=== PATIENT | female | born 2000 | race Caucasian/White ===

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

== ENCOUNTER 2018-08-05 08:11 | Emergency (ER) | payer BC ==
[2018-08-05 08:28] VITALS: BP 121/74
--- NOTE | 2018-08-05 08:37 | EDM.PDOC ---
ED HPI GENERAL MEDICAL PROBLEM - General Chief Complaint: Abdominal Pain Stated Complaint: ABDOMINAL PAIN Time Seen by Provider: 08/05/18 08:37 - History of Present Illness INITIAL COMMENTS - FREE TEXT/NARRATIVE: 18-year-old female presents to the emergency room with abdominal pain. patient has a history of gallbladder problems and is scheduled to see a surgeon on Wednesday. The last several days she's had considerable nausea vomiting and right upper quadrant discomfort. Her biggest complaint at this point is now when she stands up she gets dizzy. She did not have any chest pain chest pressure or swallowing difficulties at this point no burning or frequency with urination she doesn't think she is . Patient had a HIDA scan done a week or so ago I did look this up and it was reported as normal. Apparently patient had a gallbladder ultrasound done prior to this that showed gallbladder wall thickening. I do not have access to this Right Middle Abdominal Pain Score (Numeric/FACES): 7 - Related Data Allergies Allergy/AdvReac Type Severity Reaction Status Date / Time haloperidol [From Haldol] Allergy Facial Verified 08/05/18 08:19 Swelling Sulfa (Sulfonamide Allergy Rash Verified 08/05/18 08:19 Antibiotics) Home Meds: Home Meds Inhaler, Assist Devices [Space Chamber Plus] 1 inh [facility] ASDIRECTED PRN #1 spacer 08/20/17 [Rx] ARIPiprazole [Abilify] 10 mg PO DAILY 08/05/18 [History] Albuterol [Ventolin HFA] 1 puff INH ASDIRECTED 08/05/18 [History] Budesonide/Formoterol [Symbicort 160-4.5 MCG] 1 puff INH DAILY 08/05/18 [History ] Ondansetron [Zofran ODT] 4 mg PO Q6H PRN #10 tab.dis 08/05/18 [Rx] Venlafaxine [Effexor] 37.5 mg PO DAILY 08/05/18 [History] Past Medical History HEENT History: Reports: Allergic Rhinitis, Hard of Hearing Respiratory History: Reports: Asthma 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: , 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 Psychiatric History: Reports: Anxiety, Depression, Suicide Attempt - Past Surgical History HEENT Surgical History: Reports: Adenoidectomy, Myringotomy w Tube(s) Social & Family History - Family History Family Medical History: Noncontributory - Tobacco Use Smoking Status *Q: Current Every Day Smoker Years of Tobacco use: 6 Packs/Tins Daily: 0.2 - Caffeine Use Caffeine Use: Reports: None - Recreational Drug Use Recreational Drug Use: No - Living Situation & Occupation Living situation: Reports: Single, Alone 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 Denies: Constipation : Reports: No Symptoms Musculoskeletal: Reports: No Symptoms Skin: Reports: No Symptoms Neurological: Reports: No Symptoms ED EXAM, GI/ABD - Physical Exam Exam: See Below Exam Limited By: No Limitations General Appearance: Alert, No Apparent Distress Head: Atraumatic, Normocephalic Neck: Normal Inspection, Supple, Non-Tender, Full Range of Motion. No: Lymphadenopathy (L), Lymphadenopathy (R) Respiratory/Chest: No Respiratory Distress, Lungs Clear, Normal Breath Sounds Cardiovascular: Regular Rate, Rhythm, No Edema, No Murmur GI/Abdominal Exam: Normal Bowel Sounds, Soft, Other (She has some mild to moderate right upper quadrant discomfort with palpation vague minimal discomfort elsewhere no rigidity rebound or guarding) Back Exam: Normal Inspection, CVA Tenderness (L), CVA Tenderness (R) Extremities: Normal Inspection, Non-Tender Course - Vital Signs Last Recorded V/S: Last Vital Signs Temp 36.4 C 08/05/18 08:23 Pulse 75 08/05/18 08:23 Resp 13 08/05/18 08:23 BP 121/74 08/05/18 08:23 Pulse Ox 98 08/05/18 08:23 Orthostatic Blood Pressure [ 110/86 Standing] Orthostatic Blood Pressure [ 116/80 Sitting] Orthostatic Blood Pressure [ 121/74 Supine] - Orders/Labs/Meds Labs: Laboratory Tests 08/05/18 08/05/18 08/05/18 Range/Units 09:10 09:10 09:10 WBC 7.18 (3.98-10.04) K/mm3 RBC 5.08 (3.98-5.22) M/mm3 Hgb 14.2 (11.2-15.7) gm/L Hct 42.8 (34.1-44.9) % MCV 84.3 (79.4-94.8) fl MCH 28.0 (25.6-32.2) pg MCHC 33.2 (32.2-35.5) g/dl RDW Std Deviation 39.9 (36.4-46.3) fL Plt Count 202 (182-369) K/mm3 MPV 12.2 (9.4-12.3) fl Neutrophils % (Manual) 58 (40-60) % Band Neutrophils % 0 (0-10) % Lymphocytes % (Manual) 31 (20-40) % Atypical Lymphs % 0 % Monocytes % (Manual) 6 (2-10) % Eosinophils % (Manual) 5 (0.7-5.8) % Basophils % (Manual) 0 L (0.1-1.2) Platelet Estimate Adequate RBC Morph Comment Normal Sodium 142 (136-145) mEq/L Potassium 3.9 (3.5-5.1) mEq/L Chloride 107 (98-107) mEq/L Carbon Dioxide 23 (21-32) mEq/L Anion Gap 15.9 H (5-15) BUN 16 (7-18) mg/dL Creatinine 0.7 (0.55-1.02) mg/dL Est Cr Clr Drug Dosing 110.70 mL/min Estimated GFR (MDRD) > 60 (>60) mL/min BUN/Creatinine Ratio 22.9 H (14-18) Glucose 101 (74-106) mg/dL Calcium 9.1 (8.5-10.1) mg/dL Total Bilirubin 0.3 (0.2-1.0) mg/dL Direct Bilirubin 0.10 (0.0-0.2) mg/dl Indirect Bilirubin 0.20 AST 14 L (15-37) U/L ALT 27 (14-59) U/L Alkaline Phosphatase 81 (46-116) U/L Total Protein 7.3 (6.4-8.2) g/dl Albumin 4.0 (3.4-5.0) g/dl Globulin 3.3 gm/dL Albumin/Globulin Ratio 1.2 (1-2) HCG, Qual Negative (NEGATIVE) Urine Color (Yellow) Urine Appearance (Clear) Urine pH (5.0-8.0) Ur Specific Ragland (1.005-1.030) Urine Protein (Negative) Urine Glucose (UA) (Negative) Urine Ketones (Negative) Urine Occult Blood (Negative) Urine Nitrite (Negative) Urine Bilirubin (Negative) Urine Urobilinogen (0.2-1.0) Ur Leukocyte Esterase (Negative) Urine RBC (0-5) /hpf Urine WBC (0-5) /hpf Ur Epithelial Cells (0-5) /hpf Urine Bacteria (FEW) /hpf Urine Mucus (FEW) /hpf 08/05/18 Range/Units 09:37 WBC (3.98-10.04) K/mm3 RBC (3.98-5.22) M/mm3 Hgb (11.2-15.7) gm/L Hct (34.1-44.9) % MCV (79.4-94.8) fl MCH (25.6-32.2) pg MCHC (32.2-35.5) g/dl RDW Std Deviation (36.4-46.3) fL Plt Count (182-369) K/mm3 MPV (9.4-12.3) fl Neutrophils % (Manual) (40-60) % Band Neutrophils % (0-10) % Lymphocytes % (Manual) (20-40) % Atypical Lymphs % % Monocytes % (Manual) (2-10) % Eosinophils % (Manual) (0.7-5.8) % Basophils % (Manual) (0.1-1.2) Platelet Estimate RBC Morph Comment Sodium (136-145) mEq/L Potassium (3.5-5.1) mEq/L Chloride (98-107) mEq/L Carbon Dioxide (21-32) mEq/L Anion Gap (5-15) BUN (7-18) mg/dL Creatinine (0.55-1.02) mg/dL Est Cr Clr Drug Dosing mL/min Estimated GFR (MDRD) (>60) mL/min BUN/Creatinine Ratio (14-18) Glucose (74-106) mg/dL Calcium (8.5-10.1) mg/dL Total Bilirubin (0.2-1.0) mg/dL Direct Bilirubin (0.0-0.2) mg/dl Indirect Bilirubin AST (15-37) U/L ALT (14-59) U/L Alkaline Phosphatase (46-116) U/L Total Protein (6.4-8.2) g/dl Albumin (3.4-5.0) g/dl Globulin gm/dL Albumin/Globulin Ratio (1-2) HCG, Qual (NEGATIVE) Urine Color Yellow (Yellow) Urine Appearance Clear (Clear) Urine pH 6.0 (5.0-8.0) Ur Specific Ragland > or = 1.030 (1.005-1.030) Urine Protein 1+ H (Negative) Urine Glucose (UA) Negative (Negative) Urine Ketones Negative (Negative) Urine Occult Blood Negative (Negative) Urine Nitrite Negative (Negative) Urine Bilirubin Negative (Negative) Urine Urobilinogen 0.2 (0.2-1.0) Ur Leukocyte Esterase Negative (Negative) Urine RBC Not seen (0-5) /hpf Urine WBC 0-5 (0-5) /hpf Ur Epithelial Cells 0-5 (0-5) /hpf Urine Bacteria Few (FEW) /hpf Urine Mucus Many H (FEW) /hpf Meds: Medications Discontinued Medications Generic Name Dose Route Start Last Admin Trade Name Freq PRN Reason Stop Dose Admin Lactated Ringer's 1,000 mls @ 999 mls/hr 08/05/18 08:47 08/05/18 09:16 Ringers, Lactated IV 08/05/18 09:47 999 mls/hr .BOLUS ONE Administration - Re-Assessments/Exams Free Text/Narrative Re-Assessment/Exam: 08/05/18 11:22 Patient is feeling better after some IV fluids and some Zofran I'm not certain what's causing her discomfort. She needs to await her surgical evaluation. We' ll discharge her with some Zofran. Discussed pain management she doesn't think she needs anything. Departure - Departure Time of Disposition: 11:23 Disposition: Home, Self-Care 01 Clinical Impression: Right upper quadrant abdominal pain - Discharge Information Prescriptions: Ondansetron [Zofran ODT] 4 mg PO Q6H PRN #10 tab.dis PRN Reason: Nausea/Vomiting Referrals: Phuong Garcia NP [Primary Care Provider] - Forms: ED Department Discharge, ED Return to Work/School Form Additional Instructions: Return to the emergency room with any questions problems worsening symptoms. Clear liquid diet for the next 24 hours and slowly advance as tolerated. Use the Zofran as needed to control nausea and vomiting. Follow-up with your surgeon as scheduled.
[2018-08-05] MEDS ORDERED: Lactated Ringers 1,000 ML IV ONE (08:47)
== END 2018-08-05 11:42 | disposition home or self-care (01) ==
LOC: JD.ED 08:11
DX: R10.11 Right upper quadrant pain (principal); R11.2 Nausea with vomiting, unspecified; F41.9 Anxiety disorder, unspecified; F32.9 Major depressive disorder, single episode, unspecified; F17.210 Nicotine dependence, cigarettes, uncomplicated; Z79.899 Other long term (current) drug therapy; Z96.22 Myringotomy tube(s) status; Z88.2 Allergy status to sulfonamides; Z88.8 Allergy status to other drugs, medicaments and biological substances
CPT/HCPCS: 36415; 80048; 80076; 81001; 84703; 85007; 85027; 96360; 99284; J7120; 99283

== ENCOUNTER 2018-11-20 18:40 | Emergency (ER) | payer BC ==
[2018-11-20 18:52] VITALS: BP 126/87; PULSE 86
--- NOTE | 2018-11-20 19:25 | EDM.PDOC ---
ED HPI GENERAL MEDICAL PROBLEM - General Chief Complaint: Respiratory Problem Stated Complaint: SOB THROAT IS SORE FOR 3 DAYS Time Seen by Provider: 11/20/18 19:13 Source of Information: Reports: Patient History Limitations: Reports: No Limitations - History of Present Illness INITIAL COMMENTS - FREE TEXT/NARRATIVE: 18-year-old female presents for evaluation and treatment of a sore throat last 3 days. She reports symptoms of a sore throat, vomiting, right ear pain and chills. Denies any fever, cough, odynophagia or nausea. Reports she has been around a friend who is been ill but is unsure but she has been ill with. Has been treating symptoms with [id number] Motrin. She states that she had shortness of breath earlier but this is now resolved. - Related Data Allergies Allergy/AdvReac Type Severity Reaction Status Date / Time haloperidol [From Haldol] Allergy Facial Verified 11/20/18 18:47 Swelling Sulfa (Sulfonamide Allergy Rash Verified 11/20/18 18:47 Antibiotics) Home Meds: Home Meds Inhaler, Assist Devices [Space Chamber Plus] 1 inh [facility] ASDIRECTED PRN #1 spacer 08/20/17 [Rx] Albuterol [Ventolin HFA] 1 puff INH ASDIRECTED 08/05/18 [History] Budesonide/Formoterol [Symbicort 160-4.5 MCG] 1 puff INH DAILY 08/05/18 [History ] Venlafaxine [Effexor] 37.5 mg PO DAILY 08/05/18 [History] Past Medical History HEENT History: Reports: Allergic Rhinitis, Hard of Hearing Cardiovascular History: Reports: None Respiratory History: Reports: Asthma Gastrointestinal History: Reports: Cholelithiasis Genitourinary History: Reports: None 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: , Spontaneous Musculoskeletal History: Reports: Back Pain, Chronic Neurological History: Reports: None Psychiatric History: Reports: Anxiety, Depression, Suicide Attempt Endocrine/Metabolic History: Reports: None Hematologic History: Reports: None Immunologic History: Reports: None Oncologic (Cancer) History: Reports: None Dermatologic History: Reports: None - Infectious Disease History Infectious Disease History: Reports: None - Past Surgical History Head Surgeries/Procedures: Reports: None HEENT Surgical History: Reports: Adenoidectomy, Myringotomy w Tube(s) GI Surgical History: Reports: Cholecystectomy Social & Family History - Family History Family Medical History: Noncontributory - Tobacco Use Smoking Status *Q: Current Every Day Smoker Years of Tobacco use: 6 Packs/Tins Daily: 1 Used Tobacco, but Quit: Yes Month/Year Tobacco Last Used: 10/31 - Caffeine Use Caffeine Use: Reports: Coffee, Soda - Recreational Drug Use Recreational Drug Use: Yes Drug Use in Last 12 Months: No Recreational Drug Type: Reports: Marijuana/Hashish - Living Situation & Occupation Living situation: Reports: Single, Alone 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 Denies: Fever HEENT: Reports: Ear Pain (right), Hearing Loss, Throat Pain, Other (denies odynophagia) Respiratory: Denies: Shortness of Breath (earleir, now resolved) GI/Abdominal: Reports: Vomiting. Denies: Nausea ED EXAM, GENERAL - Physical Exam Exam: See Below Exam Limited By: No Limitations General Appearance: Alert, WD/WN, No Apparent Distress, Obese Eye Exam: Bilateral Eye: Normal Inspection Ears: Normal External Exam, Normal Canal, Hearing Grossly Normal, Normal TMs Nose: Normal Inspection Throat/Mouth: Normal Inspection, Normal Lips, Normal Voice, No Airway Compromise , Other (oropharynx is erythematous, no exudates present) Neck: Normal Inspection, Supple Respiratory/Chest: No Respiratory Distress, Lungs Clear, Normal Breath Sounds Cardiovascular: Normal Peripheral Pulses, Regular Rate, Rhythm, No Murmur Neurological: Alert, Oriented, Normal Cognition Psychiatric: Normal Affect, Normal Mood Skin Exam: Warm, Dry, Normal Color Course - Vital Signs Last Recorded V/S: Last Vital Signs Temp 98.2 F 11/20/18 18:50 Pulse 86 11/20/18 18:50 Resp 16 11/20/18 18:50 BP 126/87 11/20/18 18:50 Pulse Ox 100 11/20/18 18:50 - Orders/Labs/Meds Orders: Active Orders 24 hr Category Date Time Status STREP SCRN A RAPID W CULT CONF [RM] Stat Lab 11/20/18 19:13 Ordered - Re-Assessments/Exams Free Text/Narrative Re-Assessment/Exam: 11/20/18 19:51 Rapid strep returned negative. Recommend symptomatic care for viral pharyngitis. Discharge instructions as documented. Departure - Departure Time of Disposition: 19:53 Disposition: Home, Self-Care 01 Condition: Good Clinical Impression: Viral pharyngitis - Discharge Information *PRESCRIPTION DRUG MONITORING PROGRAM REVIEWED*: No *COPY OF PRESCRIPTION DRUG MONITORING REPORT IN PATIENT LUCIANA: No Referrals: Phuong Gacria NP [Primary Care Provider] - Forms: ED Department Discharge Additional Instructions: make sure you are drinking plenty of fluids. Tylenol or Motrin as needed for fevers and discomfort. Recommend soft foods such as Jell-O, mashed potatoes, etc. Follow-up with primary care provider if not much better in 2 weeks. Please return to the ER should your symptoms change or worsen. - My Orders Last 24 Hours: My Active Orders 11/20/18 19:13 STREP SCRN A RAPID W CULT CONF [RM] Stat - Assessment/Plan Last 24 Hours: My Active Orders 11/20/18 19:13 STREP SCRN A RAPID W CULT CONF [RM] Stat
== END 2018-11-20 20:11 | disposition home or self-care (01) ==
LOC: JD.ED 18:40
DX: J02.8 Acute pharyngitis due to other specified organisms (principal); F32.9 Major depressive disorder, single episode, unspecified; F41.9 Anxiety disorder, unspecified; F17.210 Nicotine dependence, cigarettes, uncomplicated; Z98.890 Other specified postprocedural states; Z88.2 Allergy status to sulfonamides; Z88.8 Allergy status to other drugs, medicaments and biological substances; Z79.899 Other long term (current) drug therapy
CPT/HCPCS: 87081; 87430; 99282; 99283

== ENCOUNTER 2018-11-22 11:58 | Emergency (ER) | payer BC ==
[2018-11-22 12:07] VITALS: BP 119/78; PULSE 88
[2018-11-22] MEDS ORDERED: Albuterol 0.083% 2.5 MG/3 ML Neb Soln NEB ONE ×2 (12:26→13:59)
--- NOTE | 2018-11-22 12:26 | EDM.PDOC ---
ED HPI GENERAL MEDICAL PROBLEM - General Chief Complaint: Respiratory Problem Stated Complaint: CONGESTION/HARD TO BREATHE Time Seen by Provider: 11/22/18 12:21 Source of Information: Reports: Patient History Limitations: Reports: No Limitations - History of Present Illness INITIAL COMMENTS - FREE TEXT/NARRATIVE: 18-year-old female presents for evaluation and treatment of shortness of breath. Patient reports she's been ill for the last week. She is seen by myself in the ER just 2 days ago. Rapid strep returned negative and culture was also negative. She was instructed regarding treatment for viral pharyngitis. She states she's been taking Sudafed and last night a family member gave her some medicine for congestion, she is unsure what this is. She states since then she has now been short of breath. She has a history of asthma and uses a rescue inhaler. She has been having to use the albuterol more than normal. Currently complains of wheezing, shortness of breath and chest pain. She reports one episode of vomiting yesterday and has been feeling nauseous and she reports a productive cough. No fevers, chills or any abdominal pain. She has expected some back pain that she attributes to the cough. Reports a productive cough and states she is coughing up some "white stuff ". Denies any throat pain or odynophagia now. Chest Pain Score (Numeric/FACES): 8 - Related Data Allergies Allergy/AdvReac Type Severity Reaction Status Date / Time haloperidol [From Haldol] Allergy Facial Verified 11/22/18 12:07 Swelling Sulfa (Sulfonamide Allergy Rash Verified 11/22/18 12:07 Antibiotics) Home Meds: Home Meds Inhaler, Assist Devices [Space Chamber Plus] 1 inh MC ASDIRECTED PRN #1 spacer 08/20/17 [Rx] Albuterol [Ventolin HFA] 1 puff INH ASDIRECTED 08/05/18 [History] Budesonide/Formoterol [Symbicort 160-4.5 MCG] 1 puff INH DAILY 08/05/18 [History ] Venlafaxine [Effexor] 37.5 mg PO DAILY 08/05/18 [History] Albuterol [Proventil Neb Soln] 2.5 mg .XX Q4HR PRN #20 neb 11/22/18 [Rx] Nebulizer [Truneb Nebulizer] 1 each MC ASDIRECTED #1 each 11/22/18 [Rx] predniSONE [Prednisone] 20 mg PO BID #10 tablet 11/22/18 [Rx] Past Medical History HEENT History: Reports: Allergic Rhinitis, Hard of Hearing Cardiovascular History: Reports: None Respiratory History: Reports: Asthma Gastrointestinal History: Reports: Cholelithiasis Genitourinary History: Reports: None 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: , 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 Musculoskeletal History: Reports: Back Pain, Chronic Neurological History: Reports: None Psychiatric History: Reports: Anxiety, Depression, Suicide Attempt Endocrine/Metabolic History: Reports: None Hematologic History: Reports: None Immunologic History: Reports: None Oncologic (Cancer) History: Reports: None Dermatologic History: Reports: None - Infectious Disease History Infectious Disease History: Reports: None - Past Surgical History Head Surgeries/Procedures: Reports: None HEENT Surgical History: Reports: Adenoidectomy, Myringotomy w Tube(s) GI Surgical History: Reports: Cholecystectomy Social & Family History - Family History Family Medical History: Noncontributory - Tobacco Use Smoking Status *Q: Former Smoker Used Tobacco, but Quit: Yes Month/Year Tobacco Last Used: 10/31 - Caffeine Use Caffeine Use: Reports: Coffee, Soda - Recreational Drug Use Recreational Drug Use: No - Living Situation & Occupation Living situation: Reports: Single, Alone 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 Denies: Abdominal Pain Musculoskeletal: Denies: Back Pain ED EXAM, GENERAL - Physical Exam Exam: See Below Exam Limited By: No Limitations General Appearance: Alert, WD/WN, Anxious, Mild Distress Ears: Normal External Exam, Normal Canal, Hearing Grossly Normal, Normal TMs Nose: Normal Inspection Throat/Mouth: Normal Inspection, Normal Lips, Normal Oropharynx (Erythematous but no exudates), Normal Voice, No Airway Compromise Respiratory/Chest: No Respiratory Distress, Wheezing (Diffuse bilateral) Cardiovascular: Normal Peripheral Pulses, Regular Rate, Rhythm, No Murmur GI/Abdominal: Soft, Non-Tender Neurological: Alert, Oriented, Normal Cognition Psychiatric: Normal Affect, Normal Mood Skin Exam: Warm, Dry, Normal Color Course - Vital Signs Last Recorded V/S: Last Vital Signs Temp 98.4 F 11/22/18 12:04 Pulse 88 11/22/18 12:04 Resp 16 11/22/18 12:04 BP 119/78 11/22/18 12:04 Pulse Ox 97 11/22/18 13:59 - Orders/Labs/Meds Orders: Active Orders 24 hr Category Date Time Status RT Aerosol Therapy [RC] ASDIRECTED Care 11/22/18 12:26 Active RT Aerosol Therapy [RC] ASDIRECTED Care 11/22/18 13:59 Active Labs: Laboratory Tests 11/22/18 11/22/18 Range/Units 13:10 13:10 WBC 8.41 (3.98-10.04) K/mm3 RBC 4.94 (3.98-5.22) M/mm3 Hgb 13.9 (11.2-15.7) gm/L Hct 41.2 (34.1-44.9) % MCV 83.4 (79.4-94.8) fl MCH 28.1 (25.6-32.2) pg MCHC 33.7 (32.2-35.5) g/dl RDW Std Deviation 39.8 (36.4-46.3) fL Plt Count 182 (182-369) K/mm3 MPV 12.5 H (9.4-12.3) fl Neut % (Auto) 56.4 (34.0-71.1) % Lymph % (Auto) 27.6 (19.3-51.7) % [place] % (Auto) 10.3 (4.7-12.5) % Eos % (Auto) 5.4 (0.7-5.8) Baso % (Auto) 0.2 (0.1-1.2) % Neut # (Auto) 4.74 (1.56-6.13) K/mm3 Lymph # (Auto) 2.32 (1.18-3.74) K/mm3 [place] # (Auto) 0.87 H (0.24-0.36) K/mm3 Eos # (Auto) 0.45 H (0.04-0.36) K/mm3 Baso # (Auto) 0.02 (0.01-0.08) K/mm3 Sodium 141 (136-145) mEq/L Potassium 3.6 (3.5-5.1) mEq/L Chloride 104 (98-107) mEq/L Carbon Dioxide 23 (21-32) mEq/L Anion Gap 17.6 H (5-15) BUN 5 L (7-18) mg/dL Creatinine 0.8 (0.55-1.02) mg/dL Est Cr Clr Drug Dosing 96.86 mL/min Estimated GFR (MDRD) > 60 (>60) mL/min BUN/Creatinine Ratio 6.3 L (14-18) Glucose 110 H (74-106) mg/dL Calcium 8.9 (8.5-10.1) mg/dL Total Bilirubin 0.5 (0.2-1.0) mg/dL AST 17 (15-37) U/L ALT 15 (14-59) U/L Alkaline Phosphatase 94 (46-116) U/L C-Reactive Protein 0.6 (<1.0) mg/dL Total Protein 7.1 (6.4-8.2) g/dl Albumin 3.8 (3.4-5.0) g/dl Globulin 3.3 gm/dL Albumin/Globulin Ratio 1.2 (1-2) Meds: Medications Discontinued Medications Generic Name Dose Route Start Last Admin Trade Name Rubioq PRN Reason Stop Dose Admin Albuterol 2.5 mg 11/22/18 12:26 11/22/18 12:36 Proventil Roger Chan [facility] 11/22/18 12:27 2.5 mg ONETIME ONE Administration Albuterol 2.5 mg 11/22/18 13:59 11/22/18 14:22 Proventil Neb Soln [facility] 11/22/18 14:00 2.5 mg ONETIME ONE Administration Prednisone 40 mg 11/22/18 12:53 11/22/18 13:11 Prednisone PO 11/22/18 12:54 40 mg ONETIME ONE Administration - Radiology Interpretation Free Text/Narrative:: Chest: 2 views of the chest were obtained. Comparison: Prior chest x-ray of 06/17/16. Heart size and mediastinum are normal. Lungs are clear. Bony structures appear within normal limits. Surgical clips are seen from prior cholecystectomy. Impression: 1. Nothing acute is seen on 2 view chest x-ray. - Re-Assessments/Exams Free Text/Narrative Re-Assessment/Exam: 11/22/18 12:59 Checked on the patient she sounds greatly improved after the albuterol nebulization treatment. Her chest x-ray is clear. I check some labs as well as an influenza on her. We'll also give her 40 mg by mouth prednisone for asthma exacerbation at this time.will 11/22/18 14:04 influenza is negative. I checked on patient. She still continues to start improve but she still does have some diffuse bilateral expiratory wheezes. I ordered additional albuterol neb. Reviewed her labs and imaging with her. I feel this is still a viral upper respiratory infection. Her strep culture confirmation returned negative from the other day. Plan will be to discharge her home with prednisone and albuterol nebs. Discharge instructions as documented. Departure - Departure Time of Disposition: 14:05 Disposition: Home, Self-Care 01 Condition: Good Clinical Impression: Acute asthma, Viral upper respiratory infection - Discharge Information *PRESCRIPTION DRUG MONITORING PROGRAM REVIEWED*: No *COPY OF PRESCRIPTION DRUG MONITORING REPORT IN PATIENT LUCIANA: No Prescriptions: Albuterol [Proventil Neb Soln] 2.5 mg .XX Q4HR PRN #20 neb PRN Reason: Shortness Of Breath Nebulizer [Truneb Nebulizer] 1 each MC ASDIRECTED #1 each predniSONE [Prednisone] 20 mg PO BID #10 tablet Instructions: Viral Respiratory Infection, [id number] Referrals: Phuong Garcia, DIRECTOR MEDICAL SURGICAL [Primary Care Provider] - Forms: ED Department Discharge Additional Instructions: Prednisone as prescribed. 1 tab twice a day for 5 days. Start this tomorrow as you were given some in the ER today. Nebulizer every 4-6 hours as needed for shortness of breath follow-up with your primary care provider on or Wednesday of this week. Continue with symptomatic care, rest, fluids, Tylenol and Motrin. Please return to the ER if your symptoms change or worsen. - My Orders Last 24 Hours: My Active Orders 11/22/18 12:26 RT Aerosol Therapy [RC] ASDIRECTED 11/22/18 13:59 RT Aerosol Therapy [RC] ASDIRECTED - Assessment/Plan Last 24 Hours: My Active Orders 11/22/18 12:26 RT Aerosol Therapy [RC] ASDIRECTED 11/22/18 13:59 RT Aerosol Therapy [RC] ASDIRECTED
[2018-11-22] MEDS ORDERED: predniSONE 20 MG Tab PO ONE (12:53)
--- NOTE | 2018-11-22 13:10 | CR ---
Chest: Two views of the chest were obtained. Comparison: Prior chest x-ray of 06/17/16. Heart size and mediastinum are normal. Lungs are clear. Bony structures appear within normal limits. Surgical clips are seen from prior cholecystectomy. Impression: 1. Nothing acute is seen on two-view chest x-ray. Diagnostic code #2
== END 2018-11-22 14:35 | disposition home or self-care (01) ==
LOC: JD.ED 11:58
DX: J45.909 Unspecified asthma, uncomplicated (principal); J06.9 Acute upper respiratory infection, unspecified; F41.9 Anxiety disorder, unspecified; F32.9 Major depressive disorder, single episode, unspecified; Z88.2 Allergy status to sulfonamides; Z88.8 Allergy status to other drugs, medicaments and biological substances; Z79.899 Other long term (current) drug therapy; Z79.51 Long term (current) use of inhaled steroids; Z98.890 Other specified postprocedural states; Z90.49 Acquired absence of other specified parts of digestive tract; Z87.891 Personal history of nicotine dependence
CPT/HCPCS: 36415; 71046; 80053; 85025; 86140; 87804; 94640; 99285; A9270

== ENCOUNTER 2018-12-06 19:31 | Emergency (ER) | payer BC, OTHER ==
[2018-12-06 19:51] VITALS: BP 115/66; PULSE 80
[2018-12-06] MEDS ORDERED: Ibuprofen 600 MG Tab PO ONE (20:42)
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
--- NOTE | 2018-12-06 21:11 | CT ---
CT cervical spine Technique: Multiple axial sections were obtained from above C1 inferiorly to the bottom of T2. Reconstructed sagittal and coronal images were reviewed. Comparison: No prior cervical spine imaging. Findings: Vertebral body heights and disc spaces are maintained. Prevertebral soft tissues are normal. No bony central or bony neural foraminal stenosis is seen. No fracture or abnormal subluxation is seen. Impression: 1. Nothing acute is appreciated on CT study of the cervical spine. Diagnostic code #1
== END 2018-12-06 22:05 | disposition home or self-care (01) ==
LOC: JD.ED 19:31
DX: S16.1XXA Strain of muscle, fascia and tendon at neck level, initial encounter (principal); F41.9 Anxiety disorder, unspecified; F32.9 Major depressive disorder, single episode, unspecified; F17.210 Nicotine dependence, cigarettes, uncomplicated; Z79.899 Other long term (current) drug therapy; Z96.22 Myringotomy tube(s) status; Z90.49 Acquired absence of other specified parts of digestive tract; Z88.2 Allergy status to sulfonamides; Z88.8 Allergy status to other drugs, medicaments and biological substances; V43.63XA Car passenger injured in collision with pick-up truck in traffic accident, initial encounter
CPT/HCPCS: 72125; 99284; A9270; 99282

== ENCOUNTER 2019-02-05 23:21 | Emergency (ER) | payer BC ==
[2019-02-05 23:32] VITALS: BP 121/74; PULSE 98
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
== END 2019-02-06 00:07 | disposition left against medical advice (07) ==
LOC: JD.ED 23:21
DX: J06.9 Acute upper respiratory infection, unspecified (principal); J45.909 Unspecified asthma, uncomplicated; E66.9 Obesity, unspecified; Z88.2 Allergy status to sulfonamides; Z88.8 Allergy status to other drugs, medicaments and biological substances; Z87.891 Personal history of nicotine dependence; Z79.51 Long term (current) use of inhaled steroids; Z68.32 Body mass index [BMI] 32.0-32.9, adult
CPT/HCPCS: 99281; 99284

== ENCOUNTER 2019-04-12 17:55 | Emergency (ER) | payer BC ==
[2019-04-12 18:09] VITALS: BP 114/79; PULSE 77
--- NOTE | 2019-04-12 18:44 | EDM.PDOC ---
<Ana Watkins - Last Filed: 04/12/19 18:33> ED HPI GENERAL MEDICAL PROBLEM - General Chief Complaint: Genitourinary Problem Stated Complaint: POSSIBLE MISCARRIAGE Time Seen by Provider: 04/12/19 18:06 Source of Information: Reports: Patient History Limitations: Reports: No Limitations - History of Present Illness INITIAL COMMENTS - FREE TEXT/NARRATIVE: 19-year-old female presents with vaginal bleeding that started yesterday but has since stopped today. She states that her LMP was in early February and she had one positive and one negative test around the second week of March. She is concerned this may be a possible miscarriage as she has a history of one prior miscarriage. She is unsure how much bleeding she has had but states it is more than her normal first day of a period. The blood has been dark red with clots. She is on Depo. The patient also notes lower abdominal pain that has been crampy and achy. She has not taken any OTC medications for the pain. She has had nausea and vomiting for the last two days, and states that she has been unable to work because of her pain. Location: Reports: Abdomen Quality: Reports: Ache Severity: Moderate Associated Symptoms: Reports: Cough, Nausea/Vomiting Middle Abdomen Pain Score (Numeric/FACES): 8 - Related Data Allergies Allergy/AdvReac Type Severity Reaction Status Date / Time haloperidol [From Haldol] Allergy Facial Verified 04/12/19 18:08 Swelling Sulfa (Sulfonamide Allergy Rash Verified 04/12/19 18:08 Antibiotics) Home Meds: Home Meds Budesonide/Formoterol [Symbicort 160-4.5 MCG] 1 puff INH DAILY 08/05/18 [History ] Nebulizer [Truneb Nebulizer] 1 each ASDIRECTED #1 each 11/22/18 [Rx] Dicyclomine [Bentyl] 20 mg PO Q6H PRN #10 tablet 04/12/19 [Rx] Ondansetron [Zofran ODT] 4 mg PO Q6H PRN #10 tab.dis 04/12/19 [Rx] Past Medical History HEENT History: Reports: Allergic Rhinitis, Hard of Hearing Cardiovascular History: Reports: None Respiratory History: Reports: Asthma Gastrointestinal History: Reports: Cholelithiasis Genitourinary History: Reports: None 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: , 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 Musculoskeletal History: Reports: Back Pain, Chronic Neurological History: Reports: None Psychiatric History: Reports: Anxiety, Depression, Suicide Attempt Endocrine/Metabolic History: Reports: Obesity/BMI 30+ Hematologic History: Reports: None Immunologic History: Reports: None Oncologic (Cancer) History: Reports: None Dermatologic History: Reports: None - Infectious Disease History Infectious Disease History: Reports: None - Past Surgical History Head Surgeries/Procedures: Reports: None HEENT Surgical History: Reports: Adenoidectomy, Myringotomy w Tube(s), Oral Surgery GI Surgical History: Reports: Cholecystectomy Social & Family History - Family History Family Medical History: Noncontributory - Tobacco Use Smoking Status *Q: Never Smoker - Caffeine Use Caffeine Use: Reports: Coffee, Soda - Recreational Drug Use Recreational Drug Use: No - Living Situation & Occupation Living situation: Reports: Single, with Family (Father) Occupation: Employed ([employer] and [employer]) ED ROS GENERAL - Review of Systems Review Of Systems: See Below Constitutional: Reports: No Symptoms HEENT: Reports: Sinus Problem (congestion) Respiratory: Reports: Cough Cardiovascular: Reports: No Symptoms Endocrine: Reports: No Symptoms GI/Abdominal: Reports: Abdominal Pain (lower), Nausea, Vomiting. Denies: Diarrhea, Hematemesis : Reports: Pain (pelvic ), Other (vaginal bleeding ) Musculoskeletal: Reports: No Symptoms Skin: Reports: No Symptoms Neurological: Reports: No Symptoms Psychiatric: Reports: No Symptoms Hematologic/Lymphatic: Reports: No Symptoms ED EXAM, GI/ABD - Physical Exam Exam: See Below Exam Limited By: No Limitations General Appearance: Alert, WD/WN, No Apparent Distress Respiratory/Chest: No Respiratory Distress, Lungs Clear, Normal Breath Sounds, No Accessory Muscle Use, Chest Non-Tender Cardiovascular: Normal Peripheral Pulses, Regular Rate, Rhythm, No Murmur GI/Abdominal Exam: Normal Bowel Sounds, Soft, No Organomegaly, No Distention, Tender (generalized ) Neurological: Alert, Oriented, Normal Cognition Psychiatric: Normal Affect, Normal Mood Skin Exam: Warm, Dry, Intact, Normal Color, No Rash Course - Vital Signs Last Recorded V/S: Last Vital Signs Temp 97.6 F 04/12/19 18:05 Pulse 77 04/12/19 18:05 Resp 16 04/12/19 18:05 BP 114/79 04/12/19 18:05 Pulse Ox 97 04/12/19 18:05 - Orders/Labs/Meds Labs: Laboratory Tests 04/12/19 Range/Units 19:12 Urine HCG, Qual Negative (NEGATIVE) Departure - Departure Disposition: Home, Self-Care 01 Clinical Impression: Gastroenteritis - Discharge Information Prescriptions: Dicyclomine [Bentyl] 20 mg PO Q6H PRN #10 tablet PRN Reason: Abdominal cramping Ondansetron [Zofran ODT] 4 mg PO Q6H PRN #10 tab.dis PRN Reason: Nausea Instructions: Viral Gastroenteritis, Adult Referrals: Phuong Garcia, MONEY COUNTER [Primary Care Provider] - Forms: ED Department Discharge, ED Return to Work/School Form Additional Instructions: You were seen in the emergency department today for abnormal vaginal bleeding, nausea, vomiting, abdominal cramping, and diarrhea. Your urine was negative. Your irregular period is likely related to your Depo shot wearing off. It is also likely that you are suffering from a viral gastroenteritis. You have been given a prescription for Zofran for nausea and Bentyl for abdominal cramping. Uses medication as ordered. I also recommend that you do a clear liquid diet for the next 24 hours and then advance as tolerated. If you should experience any new or worsening symptoms, please not hesitate to return to the emergency department. Sepsis Event Note - Evaluation Sepsis Screening Result: No Definite Risk - Focused Exam Vital Signs: Vital Signs Temp Pulse Resp BP Pulse Ox 04/12/19 18:05 97.6 F 77 16 114/79 97 Date Exam was Performed: 04/12/19 Time Exam was Performed: 18:33 <Mariya Jones - Last Filed: 04/12/19 20:56> Course - Re-Assessments/Exams Free Text/Narrative Re-Assessment/Exam: 04/12/19 20:07 Assessed the patient and agree with the history and exam as noted by MIGUEL Jerome student. Patient's urine hCG was negative. Patient states she had a dose of Depo-Provera 2 to 3 months ago. Her irregular bleeding yesterday was likely related related to the hormone changes from coming off the double shot. She has been having some vomiting and abdominal cramping with diarrhea intermittently for the last week. Denies any fever chills. She had 1 emesis today, but prior to today she has not had an emesis for couple days. States that her friend who is in the room with her has been sick with similar symptoms. She has is nontoxic appearing. Has generalized abdominal tenderness with no guarding or rigiditiy. I discussed that we will discharge her home with a prescription for Zofran for nausea and Bentyl for abdominal cramping as she is likely suffering from a viral gastroenteritis. Discharge instructions as noted. Departure - Departure Time of Disposition: 20:09 Condition: Fair - Discharge Information *PRESCRIPTION DRUG MONITORING PROGRAM REVIEWED*: No *COPY OF PRESCRIPTION DRUG MONITORING REPORT IN PATIENT LUCIANA: No Sepsis Event Note - Focused Exam Date Exam was Performed: 04/12/19 Time Exam was Performed: 20:54
== END 2019-04-12 20:26 | disposition home or self-care (01) ==
LOC: JD.ED 17:55
DX: K52.9 Noninfective gastroenteritis and colitis, unspecified (principal); J45.909 Unspecified asthma, uncomplicated; Z79.51 Long term (current) use of inhaled steroids; Z88.2 Allergy status to sulfonamides; Z88.8 Allergy status to other drugs, medicaments and biological substances
CPT/HCPCS: 81025; 99284

== ENCOUNTER 2020-01-27 13:44 | Emergency (ER) | payer BC ==
[2020-01-27 13:55] VITALS: BP 131/76; PULSE 100
--- NOTE | 2020-01-27 14:04 | EDM.PDOC ---
ED HPI GENERAL MEDICAL PROBLEM - General Chief Complaint: Respiratory Problem Stated Complaint: COVID SX Time Seen by Provider: 01/27/20 14:03 Source of Information: Reports: Patient History Limitations: Reports: No Limitations - History of Present Illness INITIAL COMMENTS - FREE TEXT/NARRATIVE: 19-year-old female attends the ED feeling more short of breath with paroxysmal cough that is somewhat productive. Associated nasal congestion and sore throat. Fever chills body aches with mild headache. Decreased appetite. The symptoms started 3 days ago. As far she is knows she is not been exposed to anybody with COVID-19 illness. A coworker was tested and was found to be negative. Of note the patient has asthma and uses Spiriva inhaler on a daily basis and albuterol rescue inhaler on as-needed basis usually only when she gets sick. She states she was up a good portion of the night because of the severity of the paroxysmal cough. Onset: Sudden Onset Date: 01/24/20 Duration: Day(s):, Getting Worse Location: Reports: Chest, Generalized, Other Quality: Reports: Ache Severity: Moderate Improves with: Reports: Medication Worsens with: Reports: Movement Context: Reports: Sick Contact. Denies: Activity, Exercise, Lifting, Trauma, Other Associated Symptoms: Reports: Cough, cough w sputum, Fever/Chills, Headaches, Lo ss of Appetite, Malaise, Nausea/Vomiting, Shortness of Breath, Weakness. Denies: No Other Symptoms, Confusion, Chest Pain, Diaphoresis, Rash, Seizure, Syncope Treatments CAN CLOSING MACHINE TENDER: Reports: Acetaminophen, NSAIDS - Related Data Allergies Allergy/AdvReac Type Severity Reaction Status Date / Time haloperidol [From Haldol] Allergy Facial Verified 01/27/20 13:54 Swelling Sulfa (Sulfonamide Allergy Rash Verified 01/27/20 13:54 Antibiotics) Home Meds: Home Meds Budesonide/Formoterol [Symbicort 160-4.5 MCG] 1 puff INH DAILY 08/05/18 [History] Nebulizer [Truneb Nebulizer] 1 each ASDIRECTED #1 each 11/22/18 [Rx] Dicyclomine [Bentyl] 20 mg PO Q6H PRN #10 tablet 04/12/19 [Rx] Ondansetron [Zofran ODT] 4 mg PO Q6H PRN #10 tab.dis 04/12/19 [Rx] Hydrocodone/Chlorphen P-Stirex [Hydrocodone-Chlorphen ER Susp] 5 ml PO Q12H PRN #60 ml 01/27/20 [Rx] dexAMETHasone [Decadron] 6 mg PO BID #14 tablet 01/27/20 [Rx] Past Medical History HEENT History: Reports: Allergic Rhinitis, Hard of Hearing Cardiovascular History: Reports: None Respiratory History: Reports: Asthma Gastrointestinal History: Reports: Cholelithiasis Genitourinary History: Reports: None 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: , 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 Musculoskeletal History: Reports: Back Pain, Chronic Neurological History: Reports: None Psychiatric History: Reports: Anxiety, Depression, Suicide Attempt Endocrine/Metabolic History: Reports: Obesity/BMI 30+ Hematologic History: Reports: None Immunologic History: Reports: None Oncologic (Cancer) History: Reports: None Dermatologic History: Reports: None - Infectious Disease History Infectious Disease History: Reports: None - Past Surgical History Head Surgeries/Procedures: Reports: None HEENT Surgical History: Reports: Adenoidectomy, Myringotomy w Tube(s), Oral Surgery GI Surgical History: Reports: Cholecystectomy Social & Family History - Family History Family Medical History: No Pertinent Family History - Tobacco Use Tobacco Use Status *Q: Current Every Day Tobacco User Years of Tobacco use: 6 Packs/Tins Daily: 0.5 - Caffeine Use Caffeine Use: Reports: None - Recreational Drug Use Recreational Drug Use: No - Living Situation & Occupation Living situation: Reports: Single, with Family (Father) Occupation: Employed ([employer] and [employer]) ED ROS GENERAL - Review of Systems Review Of Systems: See Below Constitutional: Reports: Fever, Chills, Malaise, Weakness, Fatigue, Weight Loss HEENT: Reports: No Symptoms, Sinus Problem, Throat Pain Respiratory: Reports: Shortness of Breath, Cough, Sputum, Other. Denies: Wheezing, Pleuritic Chest Pain Cardiovascular: Reports: Dyspnea on Exertion, Lightheadedness. Denies: Chest Pain, Blood Pressure Problem, Claudication, Edema, Orthopnea Endocrine: Reports: Fatigue GI/Abdominal: Reports: Abdominal Pain, Decreased Appetite, Nausea, Vomiting. Denies: Diarrhea : Reports: No Symptoms Musculoskeletal: Reports: Muscle Pain Skin: Reports: No Symptoms Neurological: Reports: No Symptoms Psychiatric: Reports: No Symptoms Hematologic/Lymphatic: Reports: No Symptoms Immunologic: Reports: No Symptoms ED EXAM, GENERAL - Physical Exam Exam: See Below Exam Limited By: No Limitations General Appearance: Alert, WD/WN, Mild Distress, Other Eye Exam: Bilateral Eye: Normal Inspection (no scleral icterus or blepharal pallor), PERRL Ears: Normal TMs Throat/Mouth: Other (tongue is mildy dry. no oropharyngeal infection) Head: Atraumatic, Normocephalic Neck: Normal Inspection, Supple, Non-Tender, Full Range of Motion. No: Lymphadenopathy (L), Lymphadenopathy (R) Respiratory/Chest: Lungs Clear, Normal Breath Sounds, No Accessory Muscle Use. No: Respiratory Distress, Decreased Breath Sounds, Rhonchi, Wheezing Cardiovascular: Normal Peripheral Pulses, Regular Rate, Rhythm, No Edema, No Gallop, No Murmur, No Rub, Tachycardia Peripheral Pulses: 3+: Carotid (L), Carotid (R), Posterior Tibial (L), Posterior Tibial (R), Dorsalis Pedis (L), Dorsalis Pedis (R) GI/Abdominal: Normal Bowel Sounds, Soft, Non-Tender, No Organomegaly, No Abnormal Bruit, No Mass, Pelvis Stable. No: Guarding, Rigid, Rebound, Tender Back Exam: Normal Inspection, Full Range of Motion. No: CVA Tenderness (L), CVA Tenderness (R) Extremities: Normal Inspection, Normal Range of Motion, Non-Tender, No Pedal Edema Neurological: Alert, Oriented, CN II-XII Intact, Normal Cognition, Normal Gait Psychiatric: Normal Affect, Normal Mood Skin Exam: Warm, Dry, Intact, Normal Color, No Rash Course - Vital Signs Last Recorded V/S: Last Vital Signs Temp 36.5 C 01/27/20 13:52 Pulse 100 01/27/20 13:52 Resp 16 01/27/20 13:52 BP 131/76 01/27/20 13:52 Pulse Ox 95 01/27/20 13:52 - Orders/Labs/Meds Orders: Active Orders 24 hr Category Date Time Status Chest 1V Frontal [CR] Stat Exams 01/27/20 14:14 Taken CORONAVIRUS COVID-19 PCR [facility] Stat Lab 01/27/20 14:31 Ordered - Radiology Interpretation Free Text/Narrative:: 19 year old female [id number] to the ED with signs and symproms of Covid 19 illness. Plan :Covid screen to be done and[facility] to [facility]. One view CXR to be done. - Re-Assessments/Exams Free Text/Narrative Re-Assessment/Exam: 01/27/20 14:50 chest x-ray done portably reveals mild groundglass appearance in the left lower lobe of the lung. No definitive pneumonia is evident at this time cardiac silhouette normal no pneumothorax no pleural effusion. Patient will be discharged home to quarantine for the next 12 days. Clinically she has COVID-19 illness. Swab will be sent to [facility] for analysis. She will be started on dexamethasone 6 mg twice daily for 7 days. Cough syrup Tussionex 5 mils every 12 hours as needed for cough relief. Continue Motrin and Tylenol as needed for fever relief. Departure - Departure Time of Disposition: 14:51 Disposition: Home, Self-Care 01 Condition: Fair Clinical Impression: Acute bronchitis due to COVID-19 virus - Discharge Information *PRESCRIPTION DRUG MONITORING PROGRAM REVIEWED*: Not Applicable *COPY OF PRESCRIPTION DRUG MONITORING REPORT IN PATIENT LUCIANA: Not Applicable Prescriptions: dexAMETHasone [Decadron] 6 mg PO BID #14 tablet Hydrocodone/Chlorphen P-Stirex [Hydrocodone-Chlorphen ER Susp] 5 ml PO Q12H PRN #60 ml PRN Reason: Cough relief Instructions: COVID-19 Frequently Asked Questions, COVID-19, Prevent the Spread of COVID-19 if You Are Sick - [facility] Referrals: Phuong Garcia GLUE MACHINE OPERATOR [Primary Care Provider] - Forms: ED Department Discharge, ED Return to Work/School Form Additional Instructions: Evaluation in the emergency room today in regards to paroxysmal cough sore throat nasal congestion fever and body aches. These are all signs and symptoms of COVID-19 illness. COVID-19 test was carried out and sent to [facility] department results will usually become available either tomorrow or the next day. X-ray done through the emergency room today does show a very early groundglass infiltrate in the left lower lobe suggestive of COVID-19 viral i llness. In the meantime you are to self quarantine until the results are known for sure however am very confident that you have COVID-19 illness at this time. Treatment is to use your inhalers as you need to. Suggest starting dexamethasone steroid 6 mg twice daily usually with breakfast and supper or least a little food in your stomach for the next 7 days. Cough syrup is to be Tussionex 5 mils every 12 hours as necessary for cough relief. Usually dose is used at bedtime so that you can sleep. Take it at least an hour before planning to go to bed as it takes about an hour to work. Continue Motrin 600 mg every 6 hours for fever and/or body ache relief and/or Tylenol 650 mg every 4 hours for fever relief. Plenty of fluids as appetite usually is very poor during this illness. Diet as tolerated. Sepsis Event Note (ED) - Evaluation Sepsis Screening Result: No Definite Risk - Focused Exam Vital Signs: Vital Signs Temp Pulse Resp BP Pulse Ox 01/27/20 13:52 36.5 C 100 16 131/76 95 - My Orders Last 24 Hours: My Active Orders 01/27/20 14:14 Chest 1V Frontal [CR] Stat 01/27/20 14:31 CORONAVIRUS COVID-19 PCR PHL Stat - Assessment/Plan Last 24 Hours: My Active Orders 01/27/20 14:14 Chest 1V Frontal [CR] Stat 01/27/20 14:31 CORONAVIRUS COVID-19 PCR PHL Stat
--- NOTE | 2020-01-29 10:08 | CR ---
PROCEDURE INFORMATION: Exam: XR Chest, 1 View Exam date and time: 01/27/2020 2:03 PM Age: 19 years old Clinical indication: Other: Paroxysmal productive cough. Asthmatic. Suspect covid TECHNIQUE: Imaging protocol: XR of the chest Views: 1 view. COMPARISON: DX Chest 2V 11/22/2018 12:32 PM FINDINGS: Lungs: Unremarkable. No consolidation. Pleural space: Unremarkable. No pleural effusion. No pneumothorax. Heart/Mediastinum: Unremarkable. No cardiomegaly. Bones/joints: Unremarkable. IMPRESSION: No acute findings. Thank you for allowing us to participate in the care of your patient. Dictated and Authenticated by: Lacho Miller DO 01/27/2020 3:38 PM Central Time ([place] & [place]) [place]
== END 2020-01-27 15:09 | disposition home or self-care (01) ==
LOC: JD.ED 13:44
DX: U07.1 COVID-19 (principal); J20.8 Acute bronchitis due to other specified organisms; J45.909 Unspecified asthma, uncomplicated; E66.9 Obesity, unspecified; Z68.28 Body mass index [BMI] 28.0-28.9, adult; Z88.8 Allergy status to other drugs, medicaments and biological substances; Z88.2 Allergy status to sulfonamides; F17.210 Nicotine dependence, cigarettes, uncomplicated
CPT/HCPCS: 71045; 71045-26; 99283; 99285-25; U0002

== ENCOUNTER 2020-10-01 13:06 | Emergency (ER) | payer BC ==
[2020-10-01] MEDS ORDERED: Famotidine 20 MG Tab PO ONE (13:28)
[2020-10-01] MEDS ORDERED: methylPREDNISolone Sodium Succinate 125 MG/2 ML SDV IVPUSH ONE (13:29)
--- NOTE | 2020-10-01 13:33 | EDM.PDOC ---
ED HPI GENERAL MEDICAL PROBLEM - General Chief Complaint: Allergic Reaction Stated Complaint: ALLERGIC REACTION/SENT BY [facility] Time Seen by Provider: 10/01/20 13:15 Source of Information: Reports: Patient, RN Notes Reviewed History Limitations: Reports: No Limitations - History of Present Illness INITIAL COMMENTS - FREE TEXT/NARRATIVE: Patient is a 20-year-old female presenting to the emergency part with concerns of allergic reaction. She reports a known allergy to walnuts and pecans. She ate a cookie which she was told only had peanut butter and chocolate chips and it and shortly thereafter began to experiencing some itching in her throat and mouth. She took 2 Benadryl and states that has improved slightly. She did have a small hive on her left cheek initially but this resolved after he took the Benadryl. Denies any shortness of breath. Treatments SPA MANAGER: Reports: Other Medication(s) Other Treatments SPA MANAGER: diphenhydramine (2 pills) SPA MANAGER - Related Data Allergies Allergy/AdvReac Type Severity Reaction Status Date / Time haloperidol [From Haldol] Allergy Facial Verified 10/01/20 13:20 Swelling Sulfa (Sulfonamide Allergy Rash Verified 10/01/20 13:20 Antibiotics) Home Meds: Home Meds Budesonide/Formoterol [Symbicort 160-4.5 MCG] 1 puff INH DAILY 08/05/18 [History] Nebulizer [Truneb Nebulizer] 1 each MC ASDIRECTED #1 each 11/22/18 [Rx] Past Medical History HEENT History: Reports: Allergic Rhinitis, Hard of Hearing Cardiovascular History: Reports: None Respiratory History: Reports: Asthma Gastrointestinal History: Reports: Cholelithiasis Genitourinary History: Reports: None 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: , 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 Musculoskeletal History: Reports: Back Pain, Chronic Neurological History: Reports: None Psychiatric History: Reports: Anxiety, Depression, Suicide Attempt Endocrine/Metabolic History: Reports: Obesity/BMI 30+ Hematologic History: Reports: None Immunologic History: Reports: None Oncologic (Cancer) History: Reports: None Dermatologic History: Reports: None - Infectious Disease History Infectious Disease History: Reports: Novel Coronavirus - Past Surgical History HEENT Surgical History: Reports: Adenoidectomy, Myringotomy w Tube(s), Oral Surgery Other HEENT Surgeries/Procedures: Ear surgery GI Surgical History: Reports: Cholecystectomy Social & Family History - Family History Family Medical History: No Pertinent Family History - Tobacco Use Tobacco Use Status *Q: Former Tobacco User Years of Tobacco use: 7 Used Tobacco, but Quit: Yes Month/Year Tobacco Last Used: 03/2020 Second Hand Smoke Exposure: No - Caffeine Use Caffeine Use: Reports: Coffee, Soda - Recreational Drug Use Recreational Drug Use: No - Living Situation & Occupation Living situation: Reports: Single, with Family (Father) Occupation: Employed ([employer] and [employer]) ED ROS ALLERGIC REACTION - Review of Systems Review Of Systems: Comprehensive ROS is negative, except as noted in HPI. ED EXAM GENERAL NO PERIP PULSE - Physical Exam Exam: See Below General Appearance: Alert, WD/WN, No Apparent Distress Throat/Mouth: Normal Inspection, Normal Lips, Normal Teeth, Normal Gums, Normal Oropharynx, Normal Voice, No Airway Compromise Neck: Normal Inspection, Supple, Non-Tender, Full Range of Motion Respiratory/Chest: No Respiratory Distress, Lungs Clear, Normal Breath Sounds, No Accessory Muscle Use, Chest Non-Tender Cardiovascular: Normal Peripheral Pulses, Regular Rate, Rhythm, No Edema, No Gallop, No JVD, No Murmur, No Rub GI/Abdominal: Normal Bowel Sounds, Soft, Non-Tender, No Organomegaly, No Distention, No Abnormal Bruit, No Mass Neurological: Alert, Oriented, CN II-XII Intact, Normal Cognition, Normal Gait, Normal Reflexes, No Motor/Sensory Deficits Psychiatric: Normal Affect, Normal Mood Skin Exam: Warm, Dry, Intact, Normal Color, No Rash Course - Vital Signs Last Recorded V/S: Last Vital Signs Temp 96.8 F L 10/01/20 15:07 Pulse 68 10/01/20 15:07 Resp 16 10/01/20 15:07 BP 105/57 L 10/01/20 15:07 Pulse Ox 97 10/01/20 15:07 - Orders/Labs/Meds Meds: Medications Discontinued Medications Generic Name Dose Route Start Last Admin Trade Name Rubioq PRN Reason Stop Dose Admin Famotidine 20 mg 10/01/20 13:28 10/01/20 13:50 Famotidine 20 Mg Tab PO 10/01/20 13:29 20 mg ONETIME ONE Administration Methylprednisolone Sodium Succinate 125 mg 10/01/20 13:29 10/01/20 13:48 Methylprednisolone Sodium Succinate 125 Mg/2 Ml Sdv IVPUSH 10/01/20 13:30 125 mg ONETIME ONE Administration Ondansetron HCl 4 mg 10/01/20 13:47 10/01/20 13:53 Ondansetron 4 Mg/2 Ml Sdv IVPUSH 10/01/20 13:48 4 mg ONETIME ONE Administration - Re-Assessments/Exams Free Text/Narrative Re-Assessment/Exam: Patient is a 20-year-old female presenting to the emergency department with complaints of itching in her mouth and throat after eating a cookie. Exam is unremarkable. There is no evidence of erythema or swelling in her mouth or oropharynx. Lung sounds are clear. I have ordered Solu-Medrol, Pepcid, and Zofran. She took Benadryl 50 mg prior to coming to ER. 10/01/20 14:53 Symptoms have completely resolved. She will be discharged home. We will have her follow-up with her primary care provider. Discharge instructions as documented. Departure - Departure Time of Disposition: 14:54 Disposition: Home, Self-Care 01 Condition: Good Clinical Impression: Allergic reaction Qualifiers: Encounter type: initial encounter Qualified Code(s): T78.40XA - Allergy, unspecified, initial encounter - Discharge Information *PRESCRIPTION DRUG MONITORING PROGRAM REVIEWED*: No *COPY OF PRESCRIPTION DRUG MONITORING REPORT IN PATIENT LUCIANA: No Instructions: Allergies, Adult, [id number] Referrals: Phuong Garcia NP [Primary Care Provider] - Forms: ED Department Discharge, ED Return to Work/School Form Additional Instructions: You were seen in the emergency department today for itching to your mouth and throat after eating a cookie. While in the ER, you received Solu-Medrol, Pepcid, and Zofran. You had taken Benadryl prior to coming here. This did resolve your symptoms. Recommend that you avoid allergens as much as possible. Follow-up with your primary care provider at her next visit. Return to ER as needed. Sepsis Event Note (ED) - Evaluation Sepsis Screening Result: No Definite Risk
[2020-10-01] MEDS ORDERED: Ondansetron 4 MG/2 ML SDV IVPUSH ONE (13:47)
[2020-10-01 15:12] VITALS: BP 105/57; PULSE 68
== END 2020-10-01 15:13 | disposition home or self-care (01) ==
LOC: JD.ED 13:06
DX: T78.1XXA Other adverse food reactions, not elsewhere classified, initial encounter (principal); E66.9 Obesity, unspecified; Z68.31 Body mass index [BMI] 31.0-31.9, adult; Z87.891 Personal history of nicotine dependence; Z88.2 Allergy status to sulfonamides; Z88.5 Allergy status to narcotic agent
CPT/HCPCS: 96374; 96375; 99283; A9270; J2405; J2930

== ENCOUNTER 2021-01-08 16:57 | Emergency (ER) | payer BC | END 2021-01-08 17:28 | disposition left against medical advice (07) | LOC: JD.ED 16:57 | DX: R10.9 Unspecified abdominal pain (principal); Z53.21 Procedure and treatment not carried out due to patient leaving prior to being seen by health care provider ==

== ENCOUNTER 2021-01-09 16:41 | Day surgery (SDC) | payer BC ==
[2021-01-09] MEDS ORDERED: Sodium Chloride 0.9% 10 ML Syringe FLUSH PRN (16:42)
--- NOTE | 2021-01-09 17:16 | PCM.PREANE ---
Preanesthetic Assessment - Procedure Proposed Procedure: Laparoscopym alpingectomy probablke, possible laparotomy - Anesthesia/Transfusion/Family Hx Anesthesia History: Prior Anesthesia Without Reaction Family History of Anesthesia Reaction: No Transfusion History: No Prior Transfusion(s) Intubation History: Unknown - Review of Systems General: No Symptoms Pulmonary: No Symptoms Cardiovascular: No Symptoms Gastrointestinal: Abdominal Pain, Nausea, Vomiting Neurological: No Symptoms Other: Reports: Depression, Anxiety - Physical Assessment NPO Status Date: 01/09/21 (01/08/21 1900 for food; 12/14/20 1230 water) NPO Status Time: 12:30 Vital Signs: BP 115/72 100% 16 RR HR 81 97.3 Height: 1.63 m Weight: 79.379 kg ASA Class: 2 Mental Status: Alert & Oriented x3 Airway Class: Mallampati = 2 Dentition: Reports: Caries (Recessed front four bottom teeth) Thyro-Mental Finger Breadths: 3 Mouth Opening Finger Breadths: 2 ROM/Head Extension: Full Lungs: Clear to Auscultation, Normal Respiratory Effort Cardiovascular: Regular Rate, Regular Rhythm, No Murmurs - Allergies Allergies/Adverse Reactions: Allergies Allergy/AdvReac Type Severity Reaction Status Date / Time haloperidol [From Haldol] Allergy Facial Verified 10/01/20 13:20 Swelling Sulfa (Sulfonamide Allergy Rash Verified 10/01/20 13:20 Antibiotics) - Blood Blood Available: Yes Product(s) Available: PRBC - Acknowledgements Anesthesia Type Planned: General Anesthesia Pt an Appropriate Candidate for the Planned Anesthesia: Yes Alternatives and Risks of Anesthesia Discussed w Pt/Guardian: Yes Pt/Guardian Understands and Agrees with Anesthesia Plan: Yes PreAnesthesia Questionnaire HEENT History: Reports: Allergic Rhinitis, Hard of Hearing Cardiovascular History: Reports: None Respiratory History: Reports: Asthma Gastrointestinal History: Reports: Cholelithiasis, GERD Genitourinary History: Reports: None THUMB SEWER History: Reports: , Spontaneous Musculoskeletal History: Reports: Back Pain, Chronic Neurological History: Reports: None Psychiatric History: Reports: Anxiety, Depression, Suicide Attempt Endocrine/Metabolic History: Reports: Obesity/BMI 30+ Hematologic History: Reports: None Immunologic History: Reports: None Oncologic (Cancer) History: Reports: None Dermatologic History: Reports: None - Infectious Disease History Infectious Disease History: Reports: Novel Coronavirus - Past Surgical History HEENT Surgical History: Reports: Adenoidectomy, Myringotomy w Tube(s), Oral Surgery Other HEENT Surgeries/Procedures: Ear surgery GI Surgical History: Reports: Cholecystectomy - SUBSTANCE USE Tobacco Use Status *Q: Former Tobacco User - HOME MEDS Home Medications: Home Meds Budesonide/Formoterol [Symbicort 160-4.5 MCG] 1 puff INH DAILY 08/05/18 [History] Nebulizer [Truneb Nebulizer] 1 each ASDIRECTED #1 each 11/22/18 [Rx] - CURRENT (IN HOUSE) MEDS Current Meds: Current Medications Sodium Chloride (Sodium Chloride 0.9% 10 Ml Syringe) 10 ml FLUSH ASDIRECTED PRN PRN Reason: Keep Vein Open
[2021-01-09] MEDS ORDERED: Albuterol 0.083% 2.5 MG/3 ML Neb Soln NEB ONE (17:29)
[2021-01-09] MEDS ORDERED: Midazolam 1 MG/ML 2 ML SDV ONE (17:47)
[2021-01-09] MEDS ORDERED: Propofol 200 MG/20 ML SDV ONE ×2 (17:47→18:30)
[2021-01-09] MEDS ORDERED: fentaNYL 250 MCG/5 ML SDV ONE (17:47)
[2021-01-09] MEDS ORDERED: Rocuronium 50 MG/5 ML Vial ONE (17:48)
[2021-01-09] MEDS ORDERED: Ondansetron 4 MG/2 ML SDV ONE (17:48)
[2021-01-09] MEDS ORDERED: ceFAZolin 1 GM Vial ONE (17:50)
[2021-01-09] MEDS ORDERED: Dexamethasone 4 MG/ML 5 ML MDV ONE (17:50)
[2021-01-09] MEDS ORDERED: Succinylcholine/Sod PF 100 MG/5 ML SYRINGE IV ONE (17:59)
[2021-01-09] MEDS ORDERED: Lactated Ringers 1,000 ML ONE (18:24)
[2021-01-09 18:26] VITALS: PULSE 84
[2021-01-09] MEDS: Bupivacaine 0.5% 30 ML SDV ONE ×2 (18:35→19:03)
[2021-01-09] MEDS ORDERED: HYDROmorphone 0.5 MG/0.5 ML Syringe ONE ×2 (18:36→18:40)
[2021-01-09] MEDS ORDERED: Dexmedetomidine 200 MCG/2 ML SDV ONE (18:52)
[2021-01-09] MEDS ORDERED: Sodium Chloride 0.9% 100 ML ONE (18:53)
[2021-01-09] MEDS ORDERED: Ketorolac 30 MG/ML SDV ONE (19:19)
[2021-01-09] MEDS ORDERED: Ondansetron 4 MG/2 ML SDV IVPUSH PRN (19:46)
[2021-01-09] MEDS ORDERED: HYDROmorphone 0.5 MG/0.5 ML Syringe IVPUSH PRN (19:46)
[2021-01-09] MEDS ORDERED: diphenhydrAMINE 50 MG/ML SDV ONE (19:46)
[2021-01-09] MEDS ORDERED: fentaNYL 100 MCG/2 ML SDV IVPUSH PRN (19:46)
[2021-01-09] MEDS ORDERED: diphenhydrAMINE 50 MG/ML SDV IVPUSH PRN (19:47)
--- NOTE | 2021-01-09 19:52 | PCM.POSTAN ---
POST ANESTHESIA ASSESSMENT - MENTAL STATUS Mental Status: Alert, Oriented - VITAL SIGNS Vital Signs: Last Vital Signs Temp Pulse 84 01/09/21 18:24 Resp 18 01/09/21 18:24 BP 103/61 01/09/21 18:24 Pulse Ox 100 01/09/21 18:24 1932 Vital signs 115/73 HR 89 RR 16 96 RA 98.3 - RESPIRATORY Respiratory Status: Respiratory Rate WNL, Airway Patent, O2 Saturation Stable - CARDIOVASCULAR CV Status: Pulse Rate WNL, Blood Pressure Stable - GASTROINTESTINAL GI Status: No Symptoms - PAIN Pain Score: 0 - POST OP HYDRATION Hydration Status: Adequate & Stable - OBSERVATIONS Free Text/Narrative:: Benadryl ordered for puritis.
--- NOTE | 2021-01-09 20:00 | PCM.OPNOTE ---
- General Post-Op/Procedure Note Date of Surgery/Procedure: 01/09/21 Operative Procedure(s): laparoscopic left salpingectomy Findings: large left ectopic. hemoperitoneum. otherwise normal pelvic anatomy Pre Op Diagnosis: probable ectopic Post-Op Diagnosis: Same Anesthesia Technique: General ET Tube Primary Surgeon: Shruthi Trent Fluid Replacement, Intraop: 1,000 Output, Urine Amount: 5 EBL in mLs: 500 Complications: none Condition: Good Free Text/Narrative:: The patient was taken to the Operating Room where general anesthesia was induced without complication. The patient was placed in dorsal lithotomy with Bryan Stirrups. The patient was then prepped and draped in the usual sterile fashion. A sterile bivalve speculum was placed into the vagina and the anterior lip of the cervix was grasped with a single tooth tenaculum. A Jumptap uterine manipulator was then advanced into the cervix and attached to the tenaculum to allow uterine manipulation throughout the procedure. The speculum was removed from the vagina. The bladder was drained via straight catheterization. Attention was then turned to the patients abdomen where a Veress needle was inserted into the abdomen at the umbilicus while tenting the abdominal wall. Intraabdominal placement was confirmed with a drop test using a saline filled syringe and low intraabdominal pressure on low flow. A vertical infraumbilical incision was made in the umbilical fold and the 5 mm blunt trocar was inserted with the 5 mm laparoscope inserted through the trocar for direct visualization of abdominal entry through the clear view lens. Once intraabdominal placement was confirmed, the blunt obturator was removed and the laparoscope was inserted and exam of the patient's abdomen revealed the findings detailed above. The patient was placed in Trendelenburg position and the uterus was manipulated to reveal the pelvic findings detailed above as well. Attention was turned to placement of the accessory ports. Both placed on the left. First port was placed approximately 10 cm lateral to the first incision. A 5 mm skin incision was made in the left lower quadrant and a 5 mm trocar was inserted into the abdomen under direct visualization with care to avoid the abdominal wall vasculature. A second port was placed through a 5 mm skin incision a hand breath below the first. A 5 mm trocar was inserted into the abdomen under direct visualization with care to avoid the abdominal wall vasculature. Blunt graspers and probes were used to further examine the pelvis by sweeping bowel away from the dissection field and elevating the adnexal structures. Significant hemoperitoneum noted. Suction blood bank technologist utilized to evacuate and mass consistent with ectopic noted on left fallopian tube. Tube elevated and ligasure utilized to dissect through mesosalpinx. Hemostasis noted. Lower 5 mm port replaced with 11 mm and endocatch bag used to obtain tube and ectopic. 11 mm port removed and closed with essence da device. Other ports noted to be hemostatic and removed under direct visualization. Instruments removed from vagina and hemostasis noted.
[2021-01-09 20:31] VITALS: BP 94/61
== END 2021-01-09 20:47 | disposition home or self-care (01) ==
LOC: JD.ED 16:41 → JD.SDS 17:18
PROVIDERS: ATTEND Obstetrics & Gynecology
DX: O00.90 Unspecified ectopic pregnancy without intrauterine pregnancy (principal); N83.8 Other noninflammatory disorders of ovary, fallopian tube and broad ligament; F41.9 Anxiety disorder, unspecified; J45.909 Unspecified asthma, uncomplicated; Z98.890 Other specified postprocedural states; Z88.2 Allergy status to sulfonamides; Z88.8 Allergy status to other drugs, medicaments and biological substances; Z87.891 Personal history of nicotine dependence; Z01.812 Encounter for preprocedural laboratory examination; Z20.822 Contact with and (suspected) exposure to COVID-19
CPT/HCPCS: 36415; 59151; 80053; 85025; 86850; 86900; 86901; 87635; J0690; J1100; J1170; J1200; J1885; J2250; J2405; J2704; J3010; J3490; J7120; 00840; 99140; J0330; U0002

== ENCOUNTER 2021-03-31 13:15 | Emergency (ER) | payer BC ==
[2021-03-31 13:54] VITALS: BP 109/69; PULSE 80
== END 2021-03-31 14:41 | disposition left against medical advice (07) ==
LOC: JD.ED 13:15
DX: Z53.21 Procedure and treatment not carried out due to patient leaving prior to being seen by health care provider (principal)

== ENCOUNTER 2021-10-11 02:27 | Inpatient (IN) | payer BC ==
[~2021-10-11 02:27] MED LIST: Bupivacaine 0.25% 10 ML SDV ONE
[2021-10-11] MEDS ORDERED: Nalbuphine HCl 10 MG/ 1ML Amp IVPUSH PRN (03:26)
[2021-10-11] MEDS ORDERED: Ondansetron 4 MG/2 ML SDV IVPUSH PRN (03:26)
[2021-10-11] MEDS ORDERED: Sodium Chloride 0.9% 10 ML Syringe FLUSH PRN (03:26)
[2021-10-11] MEDS ORDERED: Oxytocin/Lactated Ringers 10 UNIT/1,000 ML BAG IV SCH ×2 (03:30)
[2021-10-11] MEDS: Lactated Ringers 1,000 ML IV SCH ×3 (03:35→06:11)
[2021-10-11] MEDS ORDERED: diphenhydrAMINE 50 MG/ML SDV IVPUSH PRN (04:18)
[2021-10-11] MEDS ORDERED: fentaNYL 100 MCG/2 ML SDV EPIDUR PRN (04:18)
[2021-10-11] MEDS ORDERED: ePHEDrine 50 MG/ML SDV IVPUSH PRN (04:18)
[2021-10-11] MEDS: Bupivacaine/fentaNYL/NS 100 ML Bag EPIDUR PRN ×2 (04:32→12:00)
[2021-10-11] MEDS ORDERED: Sodium Chloride 0.9% 10 ML Syringe FLUSH SCH (09:00)
[2021-10-11] MEDS ORDERED: Witch Hazel Medicated Pads 40/Jar TOP PRN (15:36)
[2021-10-11] MEDS ORDERED: Benzocaine/Menthol 20%-0.5% Spray 78 GM Cannister TOP PRN (15:36)
[2021-10-11] MEDS ORDERED: Docusate Sodium 100 MG Cap PO PRN (15:36)
[2021-10-11] MEDS ORDERED: Acetaminophen 325 MG Tab PO PRN (15:36)
[2021-10-11] MEDS: Ibuprofen 600 MG Tab PO PRN (21:25)
[2021-10-12] MEDS: Ibuprofen 600 MG Tab PO PRN (07:50)
[2021-10-12 08:03] VITALS: BP 102/42; PULSE 80
== END 2021-10-12 13:54 | disposition home or self-care (01) | DRG 560 ==
LOC: JD.OBCHECK 02:27 → JD.OB 02:31 → JD.OBCHECK 03:26 → JD.OB 03:27 → OBSVTOIN 13:49 → JD.OB 13:50
PROVIDERS: ADMIT Obstetrics & Gynecology; ATTEND Obstetrics & Gynecology
PROC: 10E0XZZ Delivery of Products of Conception, External Approach (ICD-10-PCS; principal; 2021-10-11)
PROC: 10907ZC Drainage of Amniotic Fluid, Therapeutic from Products of Conception, Via Natural or Artificial Opening (ICD-10-PCS; 2021-10-11)
PROC: 0KQM0ZZ Repair Perineum Muscle, Open Approach (ICD-10-PCS; 2021-10-11)
PROC: 3E0R3BZ Introduction of Anesthetic Agent into Spinal Canal, Percutaneous Approach (ICD-10-PCS; 2021-10-11)
DX: O99.214 Obesity complicating childbirth (principal); O70.1 Second degree perineal laceration during delivery; Z3A.39 39 weeks gestation of pregnancy; Z37.0 Single live birth
CPT/HCPCS: 36415; 51702; 59025; 59409; 84112; 85025; 85461; 86592; 86850; 86900; 86901; A9270-GY; J2590; J2790; J3010; J3490; J7120

== ENCOUNTER 2024-11-20 17:37 | Inpatient (IN) | payer MEDICAID ==
[2024-11-20] MEDS ORDERED: Nalbuphine 10 MG/1 ML Vial IVPUSH PRN (18:05)
[2024-11-20] MEDS ORDERED: Sodium Chloride 0.9% 10 ML Syringe FLUSH PRN (18:05)
[2024-11-20] MEDS ORDERED: Ondansetron 4 MG/2 ML SDV IVPUSH PRN (18:05)
[2024-11-20] MEDS ORDERED: Oxytocin/0.9 % Sodium Chloride 30 UNIT/500 ML BAG IV SCH (18:15)
[2024-11-20] MEDS: Lactated Ringers 1,000 ML IV SCH (18:17)
[2024-11-20 18:27] LABS: BASOPHILS ABSOLUTE AUTO 0.0 K/mm3 (0.0-0.2); BASOPHILS PERCENT AUTO 0.4 % (0.0-1.0); EOSINOPHILS ABSOLUTE AUTO 0.3 K/mm3 (0.0-0.4); EOSINOPHILS PERCENT AUTO 3.1 % (0.0-6.0); IMMATURE GRAN ABSOLUTE AUTO 0.04 K/mm3 (0.00-0.05); IMMATURE GRAN PERCENT AUTO 0.4 % (0.0-0.4); LYMPHOCYTES ABSOLUTE AUTO 1.9 K/mm3 (1.0-4.8); LYMPHOCYTES PERCENT AUTO 17.8 % (24.0-44.0); MEAN PLATELET VOLUME 11.6 fl (9.4-12.3); MONOCYTES ABSOLUTE AUTO 0.9 K/mm3 (0.0-0.8); MONOCYTES PERCENT AUTO 8.1 % (0.0-8.0); NEUTROPHILS ABSOLUTE AUTO 7.3 K/mm3 (1.8-7.7); NEUTROPHILS PERCENT AUTO 70.2 % (41.0-71.0); NRBC ABSOLUTE 0.00 (0.00-0.02); NRBC PERCENT 0.0 % (0.0-0.2); PLATELET COUNT,PLT 187 K/mm3 (150-400); RED BLOOD CELL COUNT 4.61 M/mm3 (4.10-5.30); WHITE BLOOD CELL COUNT,WBC 10.43 K/mm3 (3.9-11.3)
[2024-11-20] MEDS ORDERED: fentaNYL 100 MCG/2 ML SDV EPIDUR PRN (19:19)
[2024-11-20] MEDS ORDERED: diphenhydrAMINE 50 MG/ML SDV IVPUSH PRN (19:19)
[2024-11-20] MEDS ORDERED: ePHEDrine 50 MG/ML SDV IVPUSH PRN (19:19)
[2024-11-20] MEDS: Bupivacaine/fentaNYL/NS 100 ML Bag EPIDUR PRN (19:30)
[2024-11-20] MEDS ORDERED: Sodium Chloride 0.9% 10 ML Syringe FLUSH SCH (21:00)
[2024-11-20] MEDS: Oxytocin/0.9 % Sodium Chloride 30 UNIT/500 ML BAG IV SCH (23:27)
[2024-11-21] MEDS: Witch Hazel Medicated Pads 40/Jar TOP PRN (09:08)
[2024-11-21] MEDS: Benzocaine/Menthol 20%-0.5% Spray 78 GM Cannister TOP PRN (09:09)
[2024-11-22 14:29] VITALS: BP 122/71; PULSE 64
== END 2024-11-22 14:02 | disposition home or self-care (01) | DRG 807 ==
LOC: JD.OBCHECK 17:37 → JD.OB 18:05 → OBSVTOIN 11-21 03:54 → JD.OB 11-21 06:53
PROVIDERS: ADMIT Obstetrics & Gynecology; ATTEND Obstetrics & Gynecology
PROC: 10E0XZZ Delivery of Products of Conception, External Approach (ICD-10-PCS; principal; 2024-11-21)
PROC: 3E0R3BZ Introduction of Anesthetic Agent into Spinal Canal, Percutaneous Approach (ICD-10-PCS; principal; 2024-11-21)
DX: O99.824 Streptococcus B carrier state complicating childbirth (principal); Z37.0 Single live birth; O99.214 Obesity complicating childbirth; Z3A.37 37 weeks gestation of pregnancy; Z86.16 Personal history of COVID-19; Z67.91 Unspecified blood type, Rh negative; Z88.8 Allergy status to other drugs, medicaments and biological substances; Z98.890 Other specified postprocedural states; Z87.891 Personal history of nicotine dependence; Z79.899 Other long term (current) drug therapy; Z88.2 Allergy status to sulfonamides
CPT/HCPCS: 36415; 36430; 51702; 59025; 59409; 85025; 85461; 86592; 86850; 86900; 86901; A9270-GY; J0290; J2791; J3490; J7120; J7999